=== PATIENT | male | born 1955 | race Caucasian/White ===

== ENCOUNTER 2018-07-21 17:59 | Emergency (ER) | payer MEDICAID ==
[~2018-07-21] VITALS: Ht 170.2 cm; Wt 65.0 kg
[2018-07-21] MEDS ORDERED: TETANUS, DIPHTHERIA, PERTUSSIS VAC/PF 0.5ML (>7YR OLD) IM ONE (21:15)
[2018-07-21] MEDS ORDERED: BACITRACIN ZINC OINT UDPKT TOP ONE (21:15)
[2018-07-21] MEDS ORDERED: LIDOCAINE HCL/PF 1% 10 MG/ML 5ML VIAL IJ ONE (21:15)
[2018-07-22 00:25] VITALS: BP 124/74
== END 2018-07-22 00:32 | disposition home or self-care (01) ==
LOC: ER 17:59 → EDBD 17:59 → ER 07-22 00:32
DX: S09.8XXA Other specified injuries of head, initial encounter (principal); S06.9X0A Unspecified intracranial injury without loss of consciousness, initial encounter; S01.81XA Laceration without foreign body of other part of head, initial encounter; W01.0XXA Fall on same level from slipping, tripping and stumbling without subsequent striking against object, initial encounter; Y93.89 Activity, other specified; Y92.89 Other specified places as the place of occurrence of the external cause; F10.129 Alcohol abuse with intoxication, unspecified; Y90.9 Presence of alcohol in blood, level not specified
CPT/HCPCS: 12013; 70450; 82962; 90471; 90715; 99284; J3490

== ENCOUNTER 2018-07-28 13:42 | Emergency (ER) | payer MEDICAID ==
[~2018-07-28] VITALS: Ht 160 cm; Wt 61.0 kg
[2018-07-28] MEDS ORDERED: AMLODIPINE 5MG TABLET PO ONE (16:15)
[2018-07-28 16:56] VITALS: BP 175/95
== END 2018-07-28 17:00 | disposition home or self-care (01) ==
LOC: ER 13:42
DX: I10 Essential (primary) hypertension (principal); F10.20 Alcohol dependence, uncomplicated; Y90.9 Presence of alcohol in blood, level not specified
CPT/HCPCS: 99283